=== PATIENT | male | born 1945 | race Caucasian/White ===

== ENCOUNTER → 2016-08-05 | Outpatient (CLI) | payer MEDICARE, BC ==
[2016-08-05 10:50] LABS: ALANINE AMINOTRANSFERASE 37 U/L (21-72); ALBUMIN 4.1 g/dL (3.5-5.0); ALKALINE PHOSPHATASE 62 U/L (38-126); ANION GAP 11 (5-19); ASPARTATE AMINO TRANSFERASE 32 U/L (17-59); BILIRUBIN,DIRECT 0.3 mg/dL (0.0-0.4); BILIRUBIN,TOTAL 0.5 mg/dL (0.2-1.3); BLOOD UREA NITROGEN 10 mg/dL (7-20); CALCIUM 9.1 mg/dL (8.4-10.2); CARBON DIOXIDE 23 mmol/L (22-30); CHLORIDE 106 mmol/L (98-107); CREATININE RESULT 1.06 mg/dL (0.52-1.25); GLUCOSE 167 mg/dL (75-110); POTASSIUM 4.8 mmol/L (3.6-5.0); SODIUM 140.2 mmol/L (137-145); TOTAL PROTEIN 6.7 g/dL (6.3-8.2)
== END ==
LOC: OD 08:57
PROVIDERS: ATTEND Internal Medicine Geriatric Medicine
DX: I10 Essential (primary) hypertension (principal)
CPT/HCPCS: 36415; 80053

== ENCOUNTER 2016-08-31 09:56 | Emergency (ER) | payer MEDICARE, BC ==
[2016-08-31] MEDS ORDERED: ASPIRIN 81 MG TABLET, CHEWABLE PO ONE (10:23)
[2016-08-31 10:47] LABS: ABSOLUTE BASOPHILS # (AUTO) 0.1 10^3/uL (0.0-0.2); ABSOLUTE EOSINOPHILS # (AUTO) 0.1 10^3/uL (0.0-0.6); ABSOLUTE LYMPHOCYTES (AUTO) 1.6 10^3/uL (0.5-4.7); ABSOLUTE NEUT (AUTO) 6.7 10^3/uL (1.7-8.2); EOSINOPHILS % (AUTO) 1.4 % (0-6); HEMATOCRIT 42.2 % (37.9-51.0); HEMOGLOBIN 13.8 g/dL (13.5-17.0); HGB HCT DIFFERENCE -0.8; LYMPHOCYTES % (AUTO) 16.4 % (13-45); MEAN CORPUSCULAR HEMOGLOBIN 28.6 pg (27.0-33.4); MEAN CORPUSCULAR HGB CONC 32.7 g/dL (32.0-36.0); MEAN CORPUSCULAR VOLUME 88 fl (80-97); MONOCYTES % (AUTO) 10.8 % (3-13); RED BLOOD COUNT 4.81 10^6/uL (4.35-5.55); RED CELL DISTRIBUTION WIDTH 18.1 % (11.5-14.0); SEGMENTED NEUTROPHILS % (AUTO) 70.4 % (42-78); WHITE BLOOD COUNT 9.5 10^3/uL (4.0-10.5)
--- NOTE | 2016-08-31 10:58 | ER Document Report ---
ED Cardiac - General Chief Complaint: Chest Pain Stated Complaint: CHEST PAIN Time Seen by Provider: 08/31/16 10:50 Notes: Patient says that he was laying in bed this morning around 7 AM when he experienced a "tightness" in the front of his chest. He has had it before, but "not this bad". Pain is located across the lower front of the abdomen on both sides. He also had some difficulty breathing this morning, as well. Patient says that he eventually took a nitroglycerin at about 9:20 AM as well as his other morning meds. He has acid reflux and is on omeprazole, but he says that is not helping his acid reflux and he thinks that might be part of the reason for his symptoms this morning. By the time he got to the emergency department, about 9:58 AM he was triaged, his symptoms had subsided. He is no longer having any symptoms at all at this time. Patient has a history of COPD, stopped smoking in 2010. Patient has been evaluated by hydraulic corrugating machine operator in [place]. He had a nuclear stress test done in June and following that he had a cardiac cath done July 09 of this year, just 6 weeks ago. He was told by the hydraulic corrugating machine operator that he had no more than a 25% blockage of any of his coronary arteries. PMH: Hypertension, NIDDM, acid reflux, multiple myeloma with stem cell transfusion in 2011 at [place]. TRAVEL OUTSIDE OF THE [place] IN LAST 30 DAYS: No - Related Data Allergies/Adverse Reactions: No Known Allergies Allergy (Verified 08/31/16 10:09) Home Medications: Current Home Medications Amlodipine Besylate [Norvasc 2.5 mg Tablet] 2.5 mg PO DAILY 08/31/16 [History] Aspirin [Aspirin 81 mg Chewable Tablet] 81 mg PO DAILY 08/31/16 [History] Budesonide/Formoterol Fumarate [Symbicort HFA 160-4.5 mcg Inhaler 6 gm] 2 puff IN DAILY 08/31/16 [History] Fluticasone Propionate [Flovent Diskus] 1 inh NASL DAILY 08/31/16 [History] Lansoprazole 30 mg PO DAILY 08/31/16 [History] Losartan Potassium 50 mg PO DAILY 08/31/16 [History] Metoprolol Succinate 25 mg PO DAILY 08/31/16 [History] Multivit-Min/FA/Lycopen/Lutein [Men 50 Plus Multivitamin Tab] 1 tab PO DAILY [History] Omeprazole 40 mg PO DAILY 08/31/16 [History] Past Medical History - Social History Smoking Status: Former Smoker Cigarette use (# per day): No Frequency of alcohol use: None Drug Abuse: None Family History: Reviewed & Not Pertinent Patient has suicidal ideation: No Patient has homicidal ideation: No - Past Medical History Cardiac Medical History: Reports: Hx Hypercholesterolemia, Hx Hypertension Pulmonary Medical History: Reports: Hx COPD, Hx Pneumonia - hx of 06/30/2014 Denies: Hx Asthma, Hx Bronchitis Neurological Medical History: Denies: Hx Cerebrovascular Accident, Hx Seizures Endocrine Medical History: Reports: Hx Diabetes Mellitus Type 2 GI Medical History: Reports: Hx Gastroesophageal Reflux Disease Musculoskeltal Medical History: Denies Hx Arthritis - Immunizations Hx Diphtheria, Pertussis, Tetanus Vaccination: No Hx Pneumococcal Vaccination: 01/06/14 Review of Systems - Review of Systems Notes: REVIEW OF SYSTEMS: CONSTITUTIONAL : Denies fever. EENT: Denies eye, ear, nose or mouth or throat pain or other symptoms. CARDIOVASCULAR: See HPI. RESPIRATORY: Denies cough, chest congestion, but did experience some difficulty breathing this morning. GASTROINTESTINAL: Denies abdominal pain or nausea, vomiting, or diarrhea. GENITOURINARY: Denies difficulty or painful urinating, urinary frequency, blood in urine. MUSCULOSKELETAL: Denies back or neck pain. Denies joint pain or swelling. SKIN: Denies rash or skin lesions. Extremities: Patient denies any pain or swelling of either leg. Has never had trouble with blood clots. NEUROLOGICAL: Denies LOC or altered mental status. Denies headache. Denies sensory loss or motor deficits. ALL OTHER SYSTEMS REVIEWED AND NEGATIVE. Physical Exam - Vital signs Vitals: Temp Pulse Resp BP Pulse Ox 99.9 F 67 20 109/63 98 08/31/16 10:10 08/31/16 10:10 08/31/16 10:10 08/31/16 10:10 08/31/16 10:10 Interpretation: Normal - Notes Notes: PHYSICAL EXAMINATION: GENERAL: Well-appearing, in no acute distress. Signs are all normal. HEAD: Atraumatic, normocephalic. EYES: Pupils equal round and reactive to light, extraocular movements intact. ENT: oropharynx clear without exudates. Moist mucous membranes. NECK: Normal range of motion, supple. LUNGS: Breath sounds clear and equal bilaterally. HEART: Regular rate and rhythm without murmurs. ABDOMEN: Soft, nontender. No guarding or rebound. BACK: No tenderness throughout entire back. EXTREMITIES: Normal range of motion without pain. Negative Homans bilaterally. NEUROLOGICAL: Normal speech, normal gait. Normal sensory, motor, and reflex exams. Awake, alert, and oriented x3. Cranial nerves normal. PSYCH: Normal mood, normal affect. SKIN: Warm, dry, no rashes. Course - Re-evaluation Re-evalutation: 08/31/16 13:18 Patient's entire workup was normal. Chest x-ray was negative. All labs were essentially normal. Patient has been asymptomatic since his arrival here. Given this outcome and his having had an essentially normal cardiac cath just a few weeks ago, I do not think that the patient's discomfort has anything to do with his heart. It is probably all related to his acid reflux. I have advised him to follow-up with his primary care physician, Dr. Renae about his acid reflux. - Vital Signs Vital signs: Temp Pulse Resp BP Pulse Ox 99.9 F 67 20 119/65 98 08/31/16 10:10 08/31/16 10:10 08/31/16 11:01 08/31/16 11:00 08/31/16 11:01 - Laboratory Result Diagrams: 08/31/16 10:30 08/31/16 10:30 Laboratory results interpreted by me: 08/31/16 08/31/16 10:30 10:30 RDW 18.1 H Plt Count 143 L Creatinine 1.36 H Est GFR (Non-Af Amer) 52 L Glucose 231 H - Diagnostic Test Radiology results interpreted by me: 08/31/16 10:59 chest X-ray is normal. - EKG Interpretation by Nd EKG shows normal: Sinus rhythm Rate: Normal Rhythm: NSR Additional EKG results interpreted by ga: 08/31/16 10:59 EKG is normal. Discharge - Discharge Clinical Impression: Chest pain, non-cardiac, Acid reflux Condition: Stable Disposition: HOME, SELF-CARE Additional Instructions: CHEST PAIN OF UNCLEAR CAUSE: The exact cause of your chest pain isn't clear. Fortunately, there is no evidence of a dangerous medical condition. Further testing may be required to find the source of the pain. Most often, we find that this pain is coming from the chest wall -- the muscles or rib joints in the chest. But chest pain can come from the lung and lung lining, the esophagus, the heart valves or heart lining, and even the stomach or gallbladder. Rest. Eat lightly until the pain is gone. We may prescribe medicine for pain and inflammation. You should call the physician immediately if the pain radiates to the shoulder, jaw or arms; if you start to run a fever or develop a cough; or if you develop shortness of breath, or other new or alarming symptoms. NORMAL EXAM AND WORKUP: At this time, your examination and workup show no significant abnormality. No significant abnormal physical findings were noted. All laboratory, EKG, and imaging (x-ray, CT scans, ultrasound) studies that were ordered show no significant abnormality. Although your examination and all studies that were ordered showed no significant abnormal finding, there are no examinations and no studies that are 100% accurate. There is always the possibility that some abnormality could exist and not be detected with physical examination or within the limits and capabilities of laboratory and other studies. You should return or follow up as you were instructed on your visit today for further evaluation if your symptoms do not resolve. You had an essentially normal cardiac cath just a few weeks ago. It is extremely unlikely that her chest pain is cardiac in origin. ACID REFLUX DISEASE (GERD): Gastro-Esophageal Reflux Disease (GERD) is caused by stomach acid refluxing back up into the esophagus. The valve at the end of the esophagus may be weak. This is common in persons with a hiatal hernia. GERD symptoms can include indigestion, chest pain, heartburn, or food "sticking." Certain foods, alcohol, and aspirin can make GERD worse. Treatment depends on the severity. Usually, antacids or acid-suppressing medicines are used. When the esophagus is acutely inflamed, the physician will often prescribe membrane-protective drugs such as Carafate. Some patients benefit from medication such as Reglan that tightens the valve at the top of the stomach. Avoid those foods that bring on your symptoms. For many people, these foods are coffee, chocolate, onions, garlic, and carbonated drinks. Don't use alcohol, aspirin, caffeine, or tobacco. Don't eat late at night -- within 4 hours of bedtime. Don't over-eat. If necessary, elevate the head of your bed about 4 inches so that stomach acid will not roll up into your esophagus. Call the doctor if you develop severe chest pain, inability to swallow fluids, fever, or worsening symptoms. ASPIRIN: Aspirin has been shown to have a beneficial effect on blood circulation by reducing the clotting effect of platelets in the blood. These beneficial effects can be achieved by taking just a single baby (81 mg) aspirin a day. It is recommended that any person over the age of forty take a single baby aspirin every day for heart and brain circulation, unless you are allergic to aspirin or have some significant bleeding disorder. It is strongly recommended that people who have proven cardiac or blood circulation disturbances should take a baby aspirin every day. ANTACID THERAPY: You have been instructed to start antacid therapy. Antacids directly neutralize stomach acid. This is useful for acid irritation of the esophagus, gastritis, and ulcers. You should take two tablespoons of antacid one hour after each meal and three hours after each meal. If you are not eating, take the antacid every two hours. If you are using a concentrate (such as Maalox TC), use only one tablespoon. Many antacids affect the bowels. The most common problem is diarrhea. In this case, a pure aluminum hydroxide antacid (such as AlternaGel) can be substituted for some or all doses. If the problem is constipation, add a teaspoon of Milk of Magnesia to each dose. Call the doctor if you experience continued diarrhea or constipation, or if you develop lightheadedness, bloody stool or vomitus, severe abdominal pain, or black stool. PRILOSEC (ACID PUMP INHIBITOR): Prilosec (omeprazole) is an acid-pump inhibitor. It blocks the secretion of hydrogen ions in the acid-producing cells of the stomach. Prilosec keeps your stomach from making acid. Take all medication as prescribed, even after the pain is gone. Regular antacids may be added as needed if you have symptoms while taking this medicine. There are usually no side effects from this medication. Contact your doctor if there is fever, rash, yellow skin color, increasing abdominal pain, weakness, or unusual bruising. Return at once if you develop lightheadedness, black or bloody stool, or bloody vomitus. FOLLOW-UP CARE: If you have been referred to a physician for follow-up care, call the physician s office for an appointment as you were instructed or within the next two days. If you experience worsening or a significant change in your symptoms, notify the physician immediately or return to the Emergency Department at any time for re-evaluation. Referrals: SHONA RENAE MD [Primary Care Provider] - Follow up in 1 week
--- NOTE | 2016-08-31 11:01 | RADIOLOGY REPORT (SQ) ---
EXAM DESCRIPTION: CHEST SINGLE VIEW COMPLETED DATE/TIME: 08/31/2016 10:42 am REASON FOR STUDY: SOB/CHEST PAIN COMPARISON: 02/09/2015 EXAM PARAMETERS: NUMBER OF VIEWS: One view. TECHNIQUE: Single frontal radiographic view of the chest acquired. RADIATION DOSE: NA LIMITATIONS: None. FINDINGS: LUNGS AND PLEURA: No opacities, masses or pneumothorax. No pleural effusion. MEDIASTINUM AND HILAR STRUCTURES: No masses. Contour normal. HEART AND VASCULAR STRUCTURES: Heart normal in size. Normal vasculature. BONES: No acute findings. HARDWARE: None in the chest. OTHER: No other significant finding. IMPRESSION: NO ACUTE RADIOGRAPHIC FINDING IN THE CHEST. TECHNICAL DOCUMENTATION: JOB ID: [id number]
[2016-08-31 11:06] LABS: ANION GAP 14 (5-19)
[2016-08-31 11:19] LABS: CREATINE KINASE MB 1.47 ng/mL (<4.55)
[2016-08-31 11:21] LABS: TROPONIN I < 0.012 ng/mL
[2016-08-31 11:40] LABS: ALANINE AMINOTRANSFERASE 55 U/L (21-72); ALBUMIN 4.4 g/dL (3.5-5.0); ALKALINE PHOSPHATASE 72 U/L (38-126); ASPARTATE AMINO TRANSFERASE 50 U/L (17-59); BILIRUBIN,DIRECT 0.4 mg/dL (0.0-0.4); BILIRUBIN,TOTAL 0.7 mg/dL (0.2-1.3); BLOOD UREA NITROGEN 13 mg/dL (7-20); CARBON DIOXIDE 23 mmol/L (22-30); CHLORIDE 104 mmol/L (98-107); CREATINE KINASE 132 U/L (55-170); CREATININE RESULT 1.36 mg/dL (0.52-1.25); GLUCOSE 231 mg/dL (75-110); POTASSIUM 4.4 mmol/L (3.6-5.0); SODIUM 140.7 mmol/L (137-145); TOTAL PROTEIN 7.3 g/dL (6.3-8.2)
[2016-08-31 13:19] VITALS: BP 119/59
--- NOTE | 2016-08-31 18:55 | EKG REPORT ---
SEVERITY:- NORMAL ECG - SINUS RHYTHM : Confirmed by: Yohana Kathleen 31-Aug-2016 18:54:49
== END 2016-08-31 13:33 | disposition home or self-care (01) ==
LOC: ER 09:56
DX: K21.9 Gastro-esophageal reflux disease without esophagitis (principal); R07.89 Other chest pain; I10 Essential (primary) hypertension; E11.9 Type 2 diabetes mellitus without complications; J44.9 Chronic obstructive pulmonary disease, unspecified; Z87.891 Personal history of nicotine dependence; Z85.89 Personal history of malignant neoplasm of other organs and systems; Z79.899 Other long term (current) drug therapy
CPT/HCPCS: 36415; 71010; 80053; 82550; 82553; 84484; 85025; 93005; 93010; 99285

== ENCOUNTER 2019-03-27 12:07 | Emergency (ER) | payer MEDICARE, BC ==
--- NOTE | 2019-03-27 12:41 | ER Document Report ---
ED Medical Screen (RME) - General Chief Complaint: Breathing Difficulty Stated Complaint: PAINFUL COUGH/DIFFICULTY BREATHING/WEAKNESS Time Seen by Provider: 03/27/19 12:37 Primary Care Provider: SHONA RENAE MD [Primary Care Provider] - Follow up as needed Mode of Arrival: Ambulatory Information source: Patient Notes: 74-year-old male presented to ED for complaint of no energy and not able to catch his breath with cough. He does have a history of COPD as well as multiple myeloma high blood pressure and diabetes. 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 He had a left inguinal hernia repair vasectomy and circumcision. He is a former smoker but has not smoked since 2010. Patient does have clear lung sounds I have greeted and performed a rapid initial assessment of this patient. A comprehensive ED assessment and evaluation of the patient, analysis of test results and completion of medical decision making process will be conducted by an additional ED providers. TRAVEL OUTSIDE OF THE [place] IN LAST 30 DAYS: No - Related Data Allergies/Adverse Reactions: No Known Allergies Allergy (Verified 08/31/16 10:09) Past Medical History - Social History Chew tobacco use (# tins/day): No Frequency of alcohol use: None Drug Abuse: None - Past Medical History Cardiac Medical History: Reports: Hx Hypercholesterolemia, Hx Hypertension Pulmonary Medical History: Reports: Hx COPD, Hx Pneumonia - hx of 06/30/2014 Denies: Hx Asthma, Hx Bronchitis Neurological Medical History: Denies: Hx Cerebrovascular Accident, Hx Seizures Endocrine Medical History: Reports: Hx Diabetes Mellitus Type 2 Renal/ Medical History: Denies: Hx Peritoneal Dialysis GI Medical History: Reports: Hx Gastroesophageal Reflux Disease Musculoskeltal Medical History: Denies Hx Arthritis - Immunizations Hx Diphtheria, Pertussis, Tetanus Vaccination: No Physical Exam - Vital signs Vitals: Temp Pulse Resp BP Pulse Ox 98.1 F 80 18 138/99 H 96 03/27/19 12:13 03/27/19 12:13 03/27/19 12:13 03/27/19 12:13 03/27/19 12:13 Course - Vital Signs Vital signs: Temp Pulse Resp BP Pulse Ox 98.1 F 80 18 138/99 H 96 03/27/19 12:13 03/27/19 12:13 03/27/19 12:13 03/27/19 12:13 03/27/19 12:13 Doctor's Discharge - Discharge Referrals: SHONA RENAE MD [Primary Care Provider] - Follow up as needed
--- NOTE | 2019-03-27 13:33 | RADIOLOGY REPORT (SQ) ---
EXAM DESCRIPTION: CHEST 2 VIEWS COMPLETED DATE/TIME: 03/27/2019 1:12 pm REASON FOR STUDY: Cough short of breath history of COPD and multiple COMPARISON: PA and lateral views of the chest from 02/09/2015 and AP view of the chest from 08/31/2016 EXAM PARAMETERS: NUMBER OF VIEWS: two views TECHNIQUE: PA and lateral views of the chest were obtained. RADIATION DOSE: NA LIMITATIONS: none FINDINGS: LUNGS AND PLEURA: Acute patchy parenchymal opacities in the right upper lobe. There is no pleural effusion or pneumothorax. MEDIASTINUM AND HILAR STRUCTURES: No mediastinal or hilar contour abnormality. HEART AND VASCULAR STRUCTURES: The cardiac silhouette and pulmonary vasculature are within normal houser its. BONES: No acute findings. HARDWARE: None in the chest. OTHER: No other finding. IMPRESSION: Findings as above are concerning for a right upper lobe pneumonia. TECHNICAL DOCUMENTATION: JOB ID: [id number]- All Rights Reserved Reading location - IP/workstation name: [email or web address]
[2019-03-27 14:18] LABS: APPEARANCE,URINE CLEAR; BILIRUBIN,URINE NEGATIVE (NEGATIVE); COLOR,URINE YELLOW; GLUCOSE, URINE >=500 mg/dL (NEGATIVE); KETONES,URINE NEGATIVE (NEGATIVE); PROTEIN,URINE NEGATIVE (NEGATIVE); URINE SPECIFIC GRAVITY 1.027; UROBILINOGEN,URINE NEGATIVE mg/dL (<2.0)
[2019-03-27 14:32] LABS: ABSOLUTE BASOPHILS # (AUTO) 0.1 10^3/uL (0.0-0.2); ABSOLUTE EOSINOPHILS # (AUTO) 0.1 10^3/uL (0.0-0.6); ABSOLUTE LYMPHOCYTES (AUTO) 1.6 10^3/uL (0.5-4.7); ABSOLUTE NEUT (AUTO) 5.4 10^3/uL (1.7-8.2); BASOPHILS % (AUTO) 0.6 % (0-2); EOSINOPHILS % (AUTO) 1.7 % (0-6); HEMATOCRIT 39.8 % (37.9-51.0); HEMOGLOBIN 13.3 g/dL (13.5-17.0); LYMPHOCYTES % (AUTO) 19.9 % (13-45); MEAN CORPUSCULAR HEMOGLOBIN 28.1 pg (27.0-33.4); MEAN CORPUSCULAR HGB CONC 33.4 g/dL (32.0-36.0); MEAN CORPUSCULAR VOLUME 84 fl (80-97); MONOCYTES % (AUTO) 12.2 % (3-13); PLATELET COUNT 182 10^3/uL (150-450); RED BLOOD COUNT 4.75 10^6/uL (4.35-5.55); RED CELL DISTRIBUTION WIDTH 17.6 % (11.5-14.0); SEGMENTED NEUTROPHILS % (AUTO) 65.6 % (42-78); TOTAL CELLS COUNTED % (AUTO) 100 %; WHITE BLOOD COUNT 8.2 10^3/uL (4.0-10.5)
[2019-03-27 14:46] LABS: ALBUMIN 3.8 g/dL (3.5-5.0); ALKALINE PHOSPHATASE 89 U/L (38-126); ANION GAP 13 (5-19); ASPARTATE AMINO TRANSFERASE 19 U/L (17-59); BILIRUBIN,DIRECT 0.4 mg/dL (0.0-0.4); BILIRUBIN,TOTAL 0.5 mg/dL (0.2-1.3); BLOOD UREA NITROGEN 18 mg/dL (7-20); CALCIUM 8.8 mg/dL (8.4-10.2); CARBON DIOXIDE 21 mmol/L (22-30); CHLORIDE 105 mmol/L (98-107); GLUCOSE 199 mg/dL (75-110); POTASSIUM 3.4 mmol/L (3.6-5.0); TOTAL PROTEIN 6.8 g/dL (6.3-8.2)
--- NOTE | 2019-03-27 15:49 | ER Document Report ---
ED Respiratory Problem - General Chief Complaint: Chest Pain Stated Complaint: PAINFUL COUGH/DIFFICULTY BREATHING/WEAKNESS Time Seen by Provider: 03/27/19 12:37 Primary Care Provider: SHONA RENAE MD [Primary Care Provider] - Follow up in 3-5 days Mode of Arrival: Ambulatory Notes: Patient is a 74-year-old male who presents to the emergency department with a chief complaint of shortness of breath. His shortness of breath started about a week ago. Patient states that his shortness of breath feels in his right upper lobe. Patient states that he is staying well-hydrated. Denies any fever, body aches, chills, or any other symptoms. TRAVEL OUTSIDE OF THE [place] IN LAST 30 DAYS: No - Related Data Allergies/Adverse Reactions: No Known Allergies Allergy (Verified 08/31/16 10:09) Past Medical History - General Information source: Patient - Social History Smoking Status: Former Smoker Chew tobacco use (# tins/day): No Frequency of alcohol use: None Drug Abuse: None Family History: Reviewed & Not Pertinent Patient has suicidal ideation: No Patient has homicidal ideation: No - Past Medical History Cardiac Medical History: Reports: Hx Hypercholesterolemia, Hx Hypertension Pulmonary Medical History: Reports: Hx COPD, Hx Pneumonia - hx of 06/30/2014 Denies: Hx Asthma, Hx Bronchitis Neurological Medical History: Denies: Hx Cerebrovascular Accident, Hx Seizures Endocrine Medical History: Reports: Hx Diabetes Mellitus Type 2 Renal/ Medical History: Denies: Hx Peritoneal Dialysis GI Medical History: Reports: Hx Gastroesophageal Reflux Disease Musculoskeletal Medical History: Denies Hx Arthritis - Immunizations Hx Diphtheria, Pertussis, Tetanus Vaccination: No Hx Pneumococcal Vaccination: 01/06/14 Review of Systems - Review of Systems Notes: REVIEW OF SYSTEMS: CONSTITUTIONAL : Denies recent illness. Denies recent unintentional weight loss. Denies fever, chills, or sweats. EENT: Denies eye, ear, throat, or mouth pain, discharge, or symptoms. Denies nasal or sinus congestion. CARDIOVASCULAR: Denies chest pain. RESPIRATORY: See HPI. GASTROINTESTINAL: Denies nausea, vomiting, and diarrhea. Denies abdominal pain. Denies constipation. GENITOURINARY: Denies difficulty urinating, burning, blood in urine, urgency or frequency. MUSCULOSKELETAL: Denies neck and back pain. Denies joint pain or swelling. SKIN: Denies rash, itchiness, or lesions HEMATOLOGIC : Denies easy bruising or bleeding. LYMPHATIC: Denies swollen, painful, enlarged glands. NEUROLOGICAL: Denies no numbness or tingling denies weakness. Denies headache. Denies altered mental status. Denies alteration in speech. PSYCHIATRIC: Denies stress, anxiety, alteration in sleep patterns, or depression. All other systems reviewed and negative. Physical Exam - Vital signs Vitals: Temp Pulse Resp BP Pulse Ox 98.1 F 80 18 138/99 H 96 03/27/19 12:13 03/27/19 12:13 03/27/19 12:13 03/27/19 12:13 03/27/19 12:13 - Notes Notes: PHYSICAL EXAMINATION: GENERAL: Appears well, healthy, well-nourished, no acute distress. HEAD: Normocephalic, atraumatic. EYES: PERRL, conjunctiva normal, all extraocular movements intact, sclera nonicteric ENT: Moist mucous membranes. NECK: Supple, no noticeable swelling, redness, rash. Normal range of motion. LUNGS: Coarse/Rhonchi breath sounds to right upper lobe. CARDIOVASCULAR: S1-S2, regular rate, regular rhythm. Radial pulses 2+, normal. ABDOMEN: Normoactive bowel sounds. Soft, nontender, no guarding, no rebound tenderness, and no masses palpated. EXTREMITIES: Normal strength and range of motion, no pitting or edema. No cyanosis. NEUROLOGICAL: Moves all extremities upon command. Strength 5/5 in all extremities. PSYCH: Normal mood, normal affect. SKIN: Warm, dry. No rash, lesions, ulcerations noted. Normal skin turgor. Course - Re-evaluation Re-evalutation: X-ray shows right upper lobe pneumonia. Hemoglobin is only slightly low at 10.3. Chemistry shows a potassium of 3.4. His CO2 is 21. Creatinine is slightly elevated. Patient does not meet admission criteria, per the CURB-65 assessment. Patient received Levaquin here in the emergency department. Advised him to follow-up with his primary care provider. Follow-up precautions were given. Verbal discharge instructions were given to the patient. They verbalized understanding. They are stable for discharge. - Vital Signs Vital signs: Temp Pulse Resp BP Pulse Ox 98.1 F 80 22 H 129/71 H 100 03/27/19 12:13 03/27/19 12:13 03/27/19 16:02 03/27/19 16:02 03/27/19 16:02 - Laboratory Result Diagrams: 03/27/19 13:56 03/27/19 13:56 Laboratory results interpreted by me: 03/27/19 03/27/19 03/27/19 13:56 13:56 13:56 Hgb 13.3 L RDW 17.6 H Potassium 3.4 L Carbon Dioxide 21 L Creatinine 1.34 H Est GFR (MDRD) Non-Af 52 L Glucose 199 H Urine Glucose (UA) >=500 H Discharge - Discharge Clinical Impression: Pneumonia Qualifiers: Pneumonia type: due to unspecified organism Laterality: right Lung location: upper lobe of lung Qualified Code(s): J18.9 - Pneumonia, unspecified organism Condition: Stable Disposition: HOME, SELF-CARE Additional Instructions: You have been diagnosed with a pneumonia. It is very important that you take all of your antibiotics until they are gone even if you are feeling better. Please return to the emergency department immediately if you began having worsening shortness of breath, become confused, have worsening pain, pass out, have persistent vomiting that prevents you from being able to drink fluids for more than 12 hours, or have any other symptoms that are worrisome to you. Please follow-up with your primary care doctor in the next 1-2 days. Prescriptions: Levofloxacin [Levaquin 750 mg Tablet] 750 mg PO DAILY #5 tablet Referrals: SHONA RENAE MD [Primary Care Provider] - Follow up in 3-5 days
[2019-03-27] MEDS ORDERED: LEVOFLOXACIN 750 MG TABLET PO ONE (15:51)
[2019-03-27 16:52] VITALS: BP 129/71
== END 2019-03-27 16:52 | disposition home or self-care (01) ==
LOC: ER 12:07
DX: J18.9 Pneumonia, unspecified organism (principal); R07.9 Chest pain, unspecified; R53.1 Weakness; R06.02 Shortness of breath; E78.00 Pure hypercholesterolemia, unspecified; I10 Essential (primary) hypertension; E11.9 Type 2 diabetes mellitus without complications
CPT/HCPCS: 99285; 36415; 85025; 80053; 81001; 71046; A9270

== ENCOUNTER 2019-06-12 11:43 | Inpatient (IN) | payer MEDICARE, BC ==
[2019-06-12 12:28] LABS: ABSOLUTE LYMPHOCYTES (AUTO) 0.9 10^3/uL (0.5-4.7); ABSOLUTE NEUT (AUTO) 12.5 10^3/uL (1.7-8.2); BASOPHILS % (AUTO) 0.1 % (0-2); EOSINOPHILS % (AUTO) 0.1 % (0-6); HEMATOCRIT 40.8 % (37.9-51.0); HEMOGLOBIN 13.8 g/dL (13.5-17.0); LYMPHOCYTES % (AUTO) 6.1 % (13-45); MEAN CORPUSCULAR HEMOGLOBIN 29.1 pg (27.0-33.4); MEAN CORPUSCULAR HGB CONC 33.7 g/dL (32.0-36.0); MEAN CORPUSCULAR VOLUME 86 fl (80-97); MONOCYTES % (AUTO) 7.3 % (3-13); PLATELET COUNT 234 10^3/uL (150-450); RED BLOOD COUNT 4.74 10^6/uL (4.35-5.55); RED CELL DISTRIBUTION WIDTH 18.6 % (11.5-14.0); SEGMENTED NEUTROPHILS % (AUTO) 86.4 % (42-78); TOTAL CELLS COUNTED % (AUTO) 100 %; WHITE BLOOD COUNT 14.4 10^3/uL (4.0-10.5)
[2019-06-12 12:43] LABS: ALBUMIN 3.4 g/dL (3.5-5.0); ALKALINE PHOSPHATASE 94 U/L (38-126); ANION GAP 17 (5-19); ASPARTATE AMINO TRANSFERASE 31 U/L (17-59); BILIRUBIN,DIRECT 0.4 mg/dL (0.0-0.4); BLOOD UREA NITROGEN 35 mg/dL (7-20); CALCIUM 8.2 mg/dL (8.4-10.2); CARBON DIOXIDE 15 mmol/L (22-30); CHLORIDE 99 mmol/L (98-107); GLUCOSE 312 mg/dL (75-110); POTASSIUM 5.1 mmol/L (3.6-5.0); TOTAL PROTEIN 6.4 g/dL (6.3-8.2)
[2019-06-12] MEDS ORDERED: NORMAL SALINE 1000 ML 1,000 ML IV ONE (13:08)
[2019-06-12] MEDS ORDERED: CEFTRIAXONE 1 GM/D5W RTU 1 GM/50 ML RTUPB IV ONE (13:09)
[2019-06-12] MEDS ORDERED: AZITHROMYCIN INJ 500 MG VIAL IV ONE (13:12)
--- NOTE | 2019-06-12 13:13 | ER Document Report ---
ED General - General Stated Complaint: LEFT ARM PAIN Time Seen by Provider: 06/12/19 13:01 Primary Care Provider: SHONA RENAE MD [Primary Care Provider] - Follow up as needed Mode of Arrival: Ambulatory Information source: Patient Notes: 74-year-old male with chief complaint of having yellow sputum for 5 days as well as left flank and left lateral chest pain with poor appetite and malaise and tachycardia and hypoxia. Patient able to speak full sentences without difficulty. Patient appears very comfortable in bed. He told nursing staff that he had never had A. fib before but told me that he does have a history of rapid heart rate and takes metoprolol and Norvasc. He also advised nursing staff he lives with his and he told me that he lives with his 48-year-old son. He reports he had a pneumonia which required antibiotics last year but did not need to be hospitalized for this. TRAVEL OUTSIDE OF THE [place] IN LAST 30 DAYS: No - HPI Onset: Other - x 5 days Onset/Duration: Persistent Quality of pain: Achy - Left flank - Related Data Allergies/Adverse Reactions: No Known Allergies Allergy (Verified 08/31/16 10:09) Past Medical History - General Information source: Patient - Social History Smoking Status: Never Smoker Cigarette use (# per day): No Chew tobacco use (# tins/day): No Smoking Education Provided: No Frequency of alcohol use: None Drug Abuse: None Lives with: Family - lives with and 40 year old son Family History: Reviewed & Not Pertinent Patient has suicidal ideation: No Patient has homicidal ideation: No - Past Medical History Cardiac Medical History: Reports: Hx Hypercholesterolemia, Hx Hypertension Pulmonary Medical History: Reports: Hx COPD, Hx Pneumonia - hx of 06/30/2014 Denies: Hx Asthma, Hx Bronchitis Neurological Medical History: Denies: Hx Cerebrovascular Accident, Hx Seizures Endocrine Medical History: Reports: Hx Diabetes Mellitus Type 2 Renal/ Medical History: Denies: Hx Peritoneal Dialysis GI Medical History: Reports: Hx Gastroesophageal Reflux Disease Musculoskeletal Medical History: Denies Hx Arthritis - Immunizations Hx Diphtheria, Pertussis, Tetanus Vaccination: No Hx Pneumococcal Vaccination: 01/06/14 Review of Systems - Review of Systems Constitutional: See HPI, Malaise, Weakness, Recent illness EENT: No symptoms reported Cardiovascular: See HPI, Chest pain Respiratory: See HPI, Cough, Sputum - yellow coloured Gastrointestinal: No symptoms reported Genitourinary: No symptoms reported Male Genitourinary: No symptoms reported Musculoskeletal: No symptoms reported Skin: No symptoms reported Hematologic/Lymphatic: No symptoms reported Neurological/Psychological: No symptoms reported Physical Exam - Vital signs Vitals: Temp Resp BP Pulse Ox 98.0 F 24 H 96/72 L 92 06/12/19 12:03 06/12/19 12:03 06/12/19 12:03 06/12/19 12:03 Interpretation: Hypotensive, Tachycardic, Tachypneic - General General appearance: Alert - HEENT Head: Normocephalic Eyes: Normal Conjunctiva: Normal Eyelashes: Normal Pupils: PERRL Mouth/Lips: Normal Mucous membranes: Normal Pharynx: Normal Neck: Normal - Respiratory Respiratory status: No respiratory distress Chest status: Tender Breath sounds: Productive cough, Wheezing Chest palpation: Tender - Cardiovascular Rhythm: Irregularly irregular, Tachycardia Heart sounds: Normal auscultation Murmur: No Friction rub: No Reshma's crunch: No - Abdominal Inspection: Normal Distension: No distension Bowel sounds: Normal - Back Back: Normal - Extremities General upper extremity: Normal inspection General lower extremity: Normal inspection - Neurological Neuro grossly intact: Yes Cognition: Normal Orientation: AAOx4 Center Coma Scale Eye Opening: Spontaneous Jesu Coma Scale Verbal: Oriented Center Coma Scale Motor: Obeys Commands Jesu Coma Scale Total: 15 Speech: Normal Cranial nerves: Normal Cerebellar coordination: Normal Motor strength normal: LUE, RUE, LLE, RLE Course - Vital Signs Vital signs: Temp Pulse Resp BP Pulse Ox 98.0 F 24 H 96/72 L 91 L 06/12/19 12:03 06/12/19 12:03 06/12/19 12:03 06/12/19 12:11 - Laboratory Result Diagrams: 06/12/19 11:55 06/12/19 11:55 Laboratory results interpreted by me: 06/12/19 06/12/19 06/12/19 11:55 11:55 12:41 WBC 14.4 H RDW 18.6 H Lymph % (Auto) 6.1 L Absolute Neuts (auto) 12.5 H Seg Neutrophils % 86.4 H Sodium 130.5 L Potassium 5.1 H Carbon Dioxide 15 L BUN 35 H Creatinine 1.83 H Est GFR ( Amer) 44 L Est GFR (MDRD) Non-Af 36 L Glucose 312 H Lactic Acid 2.2 H Calcium 8.2 L Albumin 3.4 L - Diagnostic Test Radiology reviewed: Reports reviewed Critical Care Note - Critical Care Note Total time excluding time spent on procedures (mins): 60 Comments: I spoke with Dr. Renae at 1340 and he advises ICU Discharge - Discharge Clinical Impression: Bacterial lobar pneumonia, Tachycardia Hypotension Qualifiers: Hypotension type: other hypotension type Qualified Code(s): I95.89 - Other hypotension Sepsis Qualifiers: Sepsis type: sepsis due to unspecified organism Sepsis acute organ dysfunction status: unspecified Qualified Code(s): A41.9 - Sepsis, unspecified organism Condition: Good Disposition: ADMITTED INPATIENT Unit Admitted: IMCU - IMCU Referrals: SHONA RENAE MD [Primary Care Provider] - Follow up as needed
--- NOTE | 2019-06-12 13:15 | RADIOLOGY REPORT (SQ) ---
EXAM DESCRIPTION: CHEST SINGLE VIEW IMAGES COMPLETED DATE/TIME: 06/12/2019 12:44 pm REASON FOR STUDY: short of breath COMPARISON: 03/27/2019 EXAM PARAMETERS: NUMBER OF VIEWS: One view. TECHNIQUE: Single frontal radiographic view of the chest acquired. RADIATION DOSE: NA LIMITATIONS: None. FINDINGS: LUNGS AND PLEURA: Consolidation in the left base consistent with pneumonia. Right upper l obe infiltrate has resolved. No pneumothorax. MEDIASTINUM AND HILAR STRUCTURES: No masses. Contour normal. HEART AND VASCULAR STRUCTURES: Heart normal in size. Normal vasculature. BONES: No acute findings. HARDWARE: None in the chest. OTHER: No other significant finding. IMPRESSION: Left lower lobe infiltrate consistent with pneumonia. TECHNICAL DOCUMENTATION: JOB ID: [id number] 2010 [employer]- All Rights Reserved Reading location - IP/workstation name: [email or web address]
--- NOTE | 2019-06-12 14:10 | EKG REPORT ---
SEVERITY:- ABNORMAL ECG - ATRIAL FIBRILLATION LVH BY VOLTAGE NONSPECIFIC T ABNORMALITIES, INFERIOR LEADS : Confirmed by: Angela Cristina MD 12-Jun-2019 14:10:06
[2019-06-12] MEDS ORDERED: DEXTROSE 40% GEL 15 GM TUBE PO PRN ×2 (15:39)
[2019-06-12] MEDS ORDERED: DEXTROSE 50%-WATER 25 GM/50 ML DISP.SYRIN IV PRN ×2 (15:39)
[2019-06-12] MEDS ORDERED: GLUCAGON,HUMAN RECOMB 1 MG INJ IM PRN (15:39)
[2019-06-12] MEDS ORDERED: IPRATROPIUM/ALBUTEROL 0.5-2.5 MG/3 ML AMPUL NEB PRN (15:47)
[2019-06-12 15:51] LABS: APPEARANCE,URINE CLEAR; BILIRUBIN,URINE NEGATIVE (NEGATIVE); COLOR,URINE YELLOW; GLUCOSE, URINE >=500 mg/dL (NEGATIVE); KETONES,URINE 20 mg/dL (NEGATIVE); LEUKOCYTE ESTERASE,URINE NEGATIVE (NEGATIVE); NITRITE,URINE NEGATIVE (NEGATIVE); PROTEIN,URINE 30 mg/dL (NEGATIVE); URINE SPECIFIC GRAVITY 1.027; UROBILINOGEN,URINE NEGATIVE mg/dL (<2.0)
--- NOTE | 2019-06-12 16:24 | PDOC H&P ---
History of Present Illness Admission Date/PCP: 06/12/19 15:02 SHONA OC Patient complains of: Pain with cough History of Present Illness: JESSICA WALKER is a 74 year old male patient known to my practice who presented to the office with complain of left sided flank pain with intermittent coughing and no improvement in his symptoms including productive cough despite 5 days of Azithromycin 250 mg six tablets treatment for possible upper respiratory tract infection. Patient has history of COPD and Multiple Myeloma. Patient reported worsening symptoms since 06/09/2019. He reported worsening shortness of breath with walking, and exertion. He localized pain to left flank region with associated decrease in appetite. He denied associated fever, chills, chest pain, palpitation, wheezing, nausea, vomiting, or heartburn. No nasal or sinus congestion. No post nasal drip. He reported visual hallucination as seeing bugs since this morning. He was subsequently referred to the ED for further evaluation and management due to concern for failure of outpatient oral antibiotic therapy, worsening leukocytosis with left shift, abnormal chest X ray suggestive of Left lower lobe pneumonia, abnormal urinalysis with glycosuria, and concern about COVID-19 infection in view of his age and morbidities. His initial evaluation the ED was significant for new onset Atrial fibrillation with rapid ventricular rate. He was advised hospitalization for further evaluation and management. His morbidities are as listed below. Past Medical History Cardiac Medical History: Reports: Hyperlipidema, Hypertension Pulmonary Medical History: Reports: Chronic Obstructive Pulmonary Disease (COPD), Pneumonia - hx of 06/30/2014 Denies: Asthma, Bronchitis Neurological Medical History: Denies: Seizures Endocrine Medical History: Reports: Diabetes Mellitus Type 2 GI Medical History: Reports: Gastroesophageal Reflux Disease Musculoskeltal Medical History: Denies: Arthritis Hematology: Denies: Anemia Social History Lives with: Family - lives with and 40 year old son Smoking Status: Never Smoker Electronic Cigarette use?: No Frequency of Alcohol Use: None Hx Recreational Drug Use: No Hx Prescription Drug Abuse: No - Advance Directive Resuscitation Status: Do Not Resuscitate - Copy of advance directive dated 04/21/2019 on chart Family History Family History: Reviewed & Not Pertinent Parental Family History Reviewed: Yes Children Family History Reviewed: Yes Sibling(s) Family History Reviewed.: Yes Medication/Allergy Home Medications: Gabapentin [Gralise] 300 mg PO QHS 06/30/14 Metformin HCl [Glucophage] 1,000 mg PO BID 06/30/14 Pravastatin Sodium [Pravachol] 20 mg PO QHS 06/30/14 Amlodipine Besylate [Norvasc 2.5 mg Tablet] 2.5 mg PO DAILY 08/31/16 Aspirin [Aspirin 81 mg Chewable Tablet] 81 mg PO DAILY 08/31/16 Fluticasone Propionate [Flovent Diskus] 1 inh NASL DAILY 08/31/16 Losartan Potassium 50 mg PO DAILY 08/31/16 Metoprolol Succinate 25 mg PO DAILY 08/31/16 Omeprazole 40 mg PO DAILY 08/31/16 Allergies/Adverse Reactions: No Known Allergies Allergy (Verified 08/31/16 10:09) Review of Systems Constitutional: ABSENT: chills, fever(s), headache(s), weight gain, weight loss Eyes: PRESENT: visual disturbances - Correction of acuity with glasses Ears: PRESENT: hearing changes - hearing impaired with aide in use Nose, Mouth, and Throat: ABSENT: headache(s), mouth pain, sore throat, vertigo Cardiovascular: PRESENT: dyspnea on exertion. ABSENT: chest pain, edema, orthropnea, palpitations Respiratory: PRESENT: cough - with left flank pain, dyspnea - with exertion and walking, sputum. ABSENT: hemoptysis Gastrointestinal: ABSENT: abdominal pain, constipation, diarrhea, hematemesis, hematochezia, nausea, vomiting Genitourinary: ABSENT: dysuria, hematuria Musculoskeletal: ABSENT: joint swelling Integumentary: ABSENT: rash, wounds Neurological: ABSENT: abnormal gait, abnormal speech, confusion, dizziness, focal weakness, syncope Psychiatric: ABSENT: anxiety, depression, homidical ideation, suicidal ideation Endocrine: ABSENT: cold intolerance, heat intolerance, menstrual abnormalities, polydipsia, polyuria Hematologic/Lymphatic: ABSENT: easy bleeding, easy bruising, lymphadenopathy Allergic/Immunologic: ABSENT: seasonal rhinorrhea Physical Exam Vital Signs: Temp Pulse Resp BP Pulse Ox 98.0 F 29 H 97/61 L 94 06/12/19 12:03 06/12/19 15:02 06/12/19 15:02 06/12/19 15:02 Intake & Output 06/11/19 06/12/19 06/13/19 06:59 06:59 06:59 Intake Total 1000 Balance 1000 General appearance: PRESENT: mild distress - on supplemental oxygen at 2L/min via nasal canula, well-developed, well-nourished Head exam: PRESENT: atraumatic, normocephalic Eye exam: PRESENT: conjunctiva pink, EOMI, PERRLA. ABSENT: scleral icterus Ear exam: PRESENT: normal external ear exam Mouth exam: PRESENT: moist, tongue midline Throat exam: ABSENT: post pharyngeal erythema Neck exam: PRESENT: full ROM. ABSENT: carotid bruit, JVD, lymphadenopathy, thyromegaly Respiratory exam: PRESENT: crackles - left lower region, decreased breath sounds - at lung bases, rales Cardiovascular exam: PRESENT: irregular rhythm, +S1, +S2, tachycardia. ABSENT: diastolic murmur, rubs, systolic murmur Pulses: PRESENT: normal dorsalis pedis pul, +2 pedal pulses bilateral Vascular exam: PRESENT: normal capillary refill. ABSENT: pallor GI/Abdominal exam: PRESENT: normal bowel sounds, soft. ABSENT: distended, guarding, mass, organolmegaly, rebound, tenderness Rectal exam: PRESENT: deferred Extremities exam: ABSENT: pedal edema Musculoskeletal exam: ABSENT: ambulatory - on wheelchair in the office due to shortness of breathwith oxygen saturation at 88-89% on room air Neurological exam: PRESENT: alert, awake, oriented to person, oriented to place, oriented to time, oriented to situation, CN II-XII grossly intact. ABSENT: motor sensory deficit Psychiatric exam: PRESENT: appropriate affect, normal mood. ABSENT: homicidal ideation, suicidal ideation Skin exam: PRESENT: dry, intact, warm. ABSENT: cyanosis, rash Results Laboratory Results: 06/12/19 11:55 06/12/19 11:55 06/12/19 06/12/19 06/12/19 11:55 11:55 12:41 WBC 14.4 H RBC 4.74 Hgb 13.8 Hct 40.8 MCV 86 MCH 29.1 MCHC 33.7 RDW 18.6 H Plt Count 234 Seg Neutrophils % 86.4 H Sodium 130.5 L Potassium 5.1 H Chloride 99 Carbon Dioxide 15 L Anion Gap 17 BUN 35 H Creatinine 1.83 H Est GFR ( Amer) 44 L Glucose 312 H Lactic Acid 2.2 H Calcium 8.2 L Total Bilirubin 1.0 AST 31 Alkaline Phosphatase 94 Total Protein 6.4 Albumin 3.4 L 06/12/19 11:55 Troponin I < 0.012 Impressions: Chest X-Ray 06/12/19 12:03 IMPRESSION: Left lower lobe infiltrate consistent with pneumonia. Assessment & Plan - Diagnosis (1) Bacterial lobar pneumonia Is this a current diagnosis for this admission?: Yes Plan: See admitting physician orders for details about care plan. (2) Probable sepsis Is this a current diagnosis for this admission?: Yes Plan: See admitting physician orders for details about care plan. (3) Atrial fibrillation with rapid ventricular response Is this a current diagnosis for this admission?: Yes Plan: See admitting physician orders for details about care plan. (4) Acute delirium Is this a current diagnosis for this admission?: Yes Plan: See admitting physician orders for details about care plan. (5) Failure of outpatient treatment Is this a current diagnosis for this admission?: Yes Plan: See admitting physician orders for details about care plan. (6) COPD (chronic obstructive pulmonary disease) Qualifiers: COPD type: unspecified COPD Qualified Code(s): J44.9 - Chronic obstructive pulmonary disease, unspecified Is this a current diagnosis for this admission?: Yes Plan: See admitting physician orders for details about care plan. (7) Diabetes mellitus type 2 in nonobese Is this a current diagnosis for this admission?: Yes Plan: See admitting physician orders for details about care plan. (8) HTN (hypertension) Qualifiers: Hypertension type: essential hypertension Qualified Code(s): I10 - Essential (primary) hypertension Is this a current diagnosis for this admission?: Yes Plan: See admitting physician orders for details about care plan. (9) HLD (hyperlipidemia) Qualifiers: Hyperlipidemia type: unspecified Qualified Code(s): E78.5 - Hyperlipidemia, unspecified Is this a current diagnosis for this admission?: Yes Plan: See admitting physician orders for details about care plan. (10) CAD (coronary artery disease) Qualifiers: Coronary Disease-Associated Artery/Lesion type: unspecified vessel or lesion type Is this a current diagnosis for this admission?: Yes Plan: See admitting physician orders for details about care plan. (11) Multiple myeloma in remission Is this a current diagnosis for this admission?: Yes Plan: See admitting physician orders for details about care plan. - Time Time Spent: Greater than 70 Minutes Medications reviewed and adjusted accordingly: Yes Anticipated discharge: Home with Homehealth Within: Other - Inpatient Certification Based on my medical assessment, after consideration of the patient's comorbidities, presenting symptoms, or acuity I expect that the services needed warrant INPATIENT care.: Yes I certify that my determination is in accordance with my understanding of Medicare's requirements for reasonable and necessary INPATIENT services [42 CFR 412.3e].: Yes Medical Necessity: Significant Comorbidiites Make Outpatient Treatment Too Ri geoffrey, Need Close Monitoring Due to Risk of Patient Decompensation, Need For IV Fluids, Need For Continuous Telemetry Monitoring, Need for Nebulizer Therapy and Monitoring of Response, Need for IV Antibiotics, Risk of Complication if Not Cared For in Hospital, Risk of Diagnosis Which Will Require Inpatient Eval/Care/Monitoring 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
[2019-06-12] MEDS: INSULIN LISPRO 100 UNIT/ML 3 ML VIAL SUBCUT SCH ×2 (17:19→22:05)
[2019-06-12 17:36] LABS: A TYPE INFLUENZA AG NEGATIVE (NEGATIVE); B INFLUENZA AG NEGATIVE (NEGATIVE)
[2019-06-12] MEDS: APIXABAN 5 MG TABLET PO SCH (19:10)
[2019-06-12] MEDS: NORMAL SALINE 1000 ML 1,000 ML IV PRN (19:11)
[2019-06-13] MEDS ORDERED: DILTIAZEM HCL/D5W 125 MG/125 ML RTUINJ IV ONE (00:10)
[2019-06-13] MEDS ORDERED: DILTIAZEM HCL/D5W 125 MG/125 ML RTUINJ IV PRN (00:14)
[2019-06-13] MEDS: NORMAL SALINE 1000 ML 1,000 ML IV PRN ×2 (04:29→14:30)
[2019-06-13 05:42] LABS: ABSOLUTE EOSINOPHILS # (AUTO) 0.1 10^3/uL (0.0-0.6); ABSOLUTE LYMPHOCYTES (AUTO) 0.9 10^3/uL (0.5-4.7); ABSOLUTE MONOCYTES (AUTO) 0.9 10^3/uL (0.1-1.4); ABSOLUTE NEUT (AUTO) 8.2 10^3/uL (1.7-8.2); BASOPHILS % (AUTO) 0.4 % (0-2); EOSINOPHILS % (AUTO) 0.6 % (0-6); HEMATOCRIT 36.3 % (37.9-51.0); HEMOGLOBIN 12.5 g/dL (13.5-17.0); LYMPHOCYTES % (AUTO) 9.1 % (13-45); MEAN CORPUSCULAR HEMOGLOBIN 29.1 pg (27.0-33.4); MEAN CORPUSCULAR HGB CONC 34.3 g/dL (32.0-36.0); MEAN CORPUSCULAR VOLUME 85 fl (80-97); MONOCYTES % (AUTO) 8.9 % (3-13); PLATELET COUNT 200 10^3/uL (150-450); RED BLOOD COUNT 4.27 10^6/uL (4.35-5.55); RED CELL DISTRIBUTION WIDTH 18.2 % (11.5-14.0); TOTAL CELLS COUNTED % (AUTO) 100 %; WHITE BLOOD COUNT 10.1 10^3/uL (4.0-10.5)
[2019-06-13 05:46] LABS: ALBUMIN 2.6 g/dL (3.5-5.0); ALKALINE PHOSPHATASE 86 U/L (38-126); ANION GAP 10 (5-19); ASPARTATE AMINO TRANSFERASE 27 U/L (17-59); BILIRUBIN,DIRECT 0.1 mg/dL (0.0-0.4); BILIRUBIN,TOTAL 0.6 mg/dL (0.2-1.3); BLOOD UREA NITROGEN 27 mg/dL (7-20); CALCIUM 7.6 mg/dL (8.4-10.2); CARBON DIOXIDE 19 mmol/L (22-30); CHLORIDE 105 mmol/L (98-107); GLUCOSE 127 mg/dL (75-110); TOTAL PROTEIN 5.1 g/dL (6.3-8.2)
[2019-06-13 05:57] LABS: POTASSIUM 3.8 mmol/L (3.6-5.0)
[2019-06-13] MEDS: PANTOPRAZOLE SODIUM 40 MG TABLET.DR PO SCH (06:10)
[2019-06-13] MEDS: INSULIN LISPRO 100 UNIT/ML 3 ML VIAL SUBCUT SCH ×4 (07:33→21:23)
--- NOTE | 2019-06-13 08:13 | EKG REPORT ---
SEVERITY:- NORMAL ECG - SINUS RHYTHM : Confirmed by: Angela Cristina MD 13-Jun-2019 08:12:36
--- NOTE | 2019-06-13 08:13 | EKG REPORT ---
SEVERITY:- OTHERWISE NORMAL ECG - SINUS TACHYCARDIA : Confirmed by: Angela Cristina MD 13-Jun-2019 08:12:43
[2019-06-13] MEDS ORDERED: VALACYCLOVIR HCL PO PRN (08:33)
[2019-06-13] MEDS ORDERED: (PENDING PHARMACY ID) (Benzonatate [Benzonatate] 200 MG) PO PRN (08:33)
[2019-06-13] MEDS ORDERED: BENZONATATE 100 MG CAPSULE PO PRN (08:55)
[2019-06-13] MEDS ORDERED: VALACYCLOVIR HCL 500 MG TABLET PO PRN (08:57)
[2019-06-13] MEDS ORDERED: AZITHROMYCIN 500 MG in DEXTROSE 5%-WATER 250 ML IV SCH (10:00)
[2019-06-13] MEDS ORDERED: GABAPENTIN 300 MG PO SCH (10:00)
[2019-06-13] MEDS ORDERED: (PENDING PHARMACY ID) (Dapagliflozin Propanediol [Farxiga] 5 MG) PO SCH (10:00)
[2019-06-13] MEDS ORDERED: METHYLCELLULOSE 500 MG PO SCH (10:00)
[2019-06-13] MEDS ORDERED: (PENDING PHARMACY ID) (Multivit-Min/Fa/Lycopen/Lutein [Centrum Silver Men Tablet] 1 TAB) PO SCH (10:00)
[2019-06-13] MEDS: GLIMEPIRIDE 4 MG TABLET PO SCH (10:19)
[2019-06-13] MEDS: METFORMIN HCL 500 MG TABLET PO SCH ×2 (10:20→17:08)
[2019-06-13] MEDS: APIXABAN 5 MG TABLET PO SCH ×2 (10:20→17:08)
[2019-06-13] MEDS: MULTIVITAMIN TABLET PO SCH (10:21)
[2019-06-13] MEDS: LEVOFLOXACIN 500 MG/D5W RTU 500 MG/100 ML RTUPB IV SCH (10:21)
[2019-06-13] MEDS: CEFTRIAXONE 1 GM/D5W RTU 1 GM/50 ML RTUPB IV SCH (11:46)
[2019-06-13] MEDS: GABAPENTIN 300 MG CAPSULE PO SCH ×2 (14:10→21:42)
[2019-06-13] MEDS: METOPROLOL SUCCINATE 25 MG TAB.SR.24H PO SCH (14:10)
--- NOTE | 2019-06-13 15:18 | PDOC PROGRESS REPORT ---
Subjective Progress Note for:: 06/13/19 Subjective:: Patient reported some improvement in his breathing. No visual hallucination so far today. There was episodes of intermittent atrial fibrillation with rapid ventricular with need for IV Cardizem. Currently in sinus rhythm. No chest pain or difficulty with breathing. No nausea, vomiting, or abdominal pain. Reason For Visit: LEFT LOWER LOBE PNEUMONIA,NEW ONSET A. FIB,COPD,DM Physical Exam Vital Signs: Temp Pulse Resp BP Pulse Ox 98.6 F 112 H 18 99/62 L 93 06/13/19 05:16 06/13/19 07:00 06/13/19 05:16 06/13/19 05:16 06/13/19 05:16 Intake & Output 06/12/19 06/13/19 06/14/19 06:59 06:59 06:59 Intake Total 2876 Output Total 975 Balance 1901 General appearance: PRESENT: mild distress - on supplemental oxygen. Head exam: PRESENT: atraumatic, normocephalic Eye exam: PRESENT: conjunctiva pink. ABSENT: scleral icterus Mouth exam: PRESENT: moist Respiratory exam: PRESENT: decreased breath sounds, rhonchi Cardiovascular exam: PRESENT: RRR, +S1, +S2. ABSENT: diastolic murmur, rubs, systolic murmur Vascular exam: ABSENT: pallor GI/Abdominal exam: PRESENT: normal bowel sounds, soft. ABSENT: distended, guarding, mass, organolmegaly, rebound, tenderness Extremities exam: ABSENT: pedal edema Neurological exam: PRESENT: alert, awake, oriented to person, oriented to place, oriented to time, oriented to situation, CN II-XII grossly intact. ABSENT: motor sensory deficit Psychiatric exam: PRESENT: appropriate affect, normal mood. ABSENT: homicidal ideation, suicidal ideation Skin exam: PRESENT: dry, warm Results Laboratory Results: 06/13/19 04:48 06/13/19 04:48 06/12/19 06/12/19 06/12/19 11:55 11:55 12:41 WBC 14.4 H RBC 4.74 Hgb 13.8 Hct 40.8 MCV 86 MCH 29.1 MCHC 33.7 RDW 18.6 H Plt Count 234 Seg Neutrophils % 86.4 H Sodium 130.5 L Potassium 5.1 H Chloride 99 Carbon Dioxide 15 L Anion Gap 17 BUN 35 H Creatinine 1.83 H Est GFR ( Amer) 44 L Glucose 312 H Lactic Acid 2.2 H Calcium 8.2 L Total Bilirubin 1.0 AST 31 Alkaline Phosphatase 94 Total Protein 6.4 Albumin 3.4 L Urine Color Urine Appearance Urine pH Ur Specific [place] Urine Protein Urine Glucose (UA) Urine Ketones Urine Blood Urine Nitrite Ur Leukocyte Esterase Urine WBC (Auto) Urine RBC (Auto) 06/12/19 06/12/19 06/12/19 14:40 16:56 21:13 WBC RBC Hgb Hct MCV MCH MCHC RDW Plt Count Seg Neutrophils % Sodium Potassium Chloride Carbon Dioxide Anion Gap BUN Creatinine Est GFR ( Amer) Glucose Lactic Acid 3.1 H 1.7 Calcium Total Bilirubin AST Alkaline Phosphatase Total Protein Albumin Urine Color YELLOW Urine Appearance CLEAR Urine pH 5.0 Ur Specific [place] 1.027 Urine Protein 30 H Urine Glucose (UA) >=500 H Urine Ketones 20 H Urine Blood SMALL H Urine Nitrite NEGATIVE Ur Leukocyte Esterase NEGATIVE Urine WBC (Auto) 1 Urine RBC (Auto) 1 06/13/19 06/13/19 04:48 04:48 WBC 10.1 RBC 4.27 L Hgb 12.5 L Hct 36.3 L MCV 85 MCH 29.1 MCHC 34.3 RDW 18.2 H Plt Count 200 Seg Neutrophils % 81.0 H Sodium 134.2 L Potassium 3.8 D Chloride 105 Carbon Dioxide 19 L Anion Gap 10 BUN 27 H Creatinine 1.12 Est GFR ( Amer) > 60 Glucose 127 H Lactic Acid Calcium 7.6 L Total Bilirubin 0.6 AST 27 Alkaline Phosphatase 86 Total Protein 5.1 L Albumin 2.6 L Urine Color Urine Appearance Urine pH Ur Specific [place] Urine Protein Urine Glucose (UA) Urine Ketones Urine Blood Urine Nitrite Ur Leukocyte Esterase Urine WBC (Auto) Urine RBC (Auto) 06/12/19 14:45 Blood Blood Culture (PCR) - Final Streptococcus Pneumoniae 06/12/19 12:41 Blood Blood Culture (PCR) - Final Streptococcus Pneumoniae 06/12/19 11:55 Troponin I < 0.012 Impressions: Chest X-Ray 06/12/19 12:03 IMPRESSION: Left lower lobe infiltrate consistent with pneumonia. Assessment & Plan - Diagnosis (1) Bacterial lobar pneumonia Is this a current diagnosis for this admission?: Yes (2) Probable sepsis Is this a current diagnosis for this admission?: Yes (3) Atrial fibrillation with rapid ventricular response Is this a current diagnosis for this admission?: Yes (4) Acute delirium Is this a current diagnosis for this admission?: Yes (5) Failure of outpatient treatment Is this a current diagnosis for this admission?: Yes (6) COPD (chronic obstructive pulmonary disease) Qualifiers: COPD type: unspecified COPD Qualified Code(s): J44.9 - Chronic obstructive pulmonary disease, unspecified Is this a current diagnosis for this admission?: Yes (7) Diabetes mellitus type 2 in nonobese Is this a current diagnosis for this admission?: Yes (8) HTN (hypertension) Qualifiers: Hypertension type: essential hypertension Qualified Code(s): I10 - Essential (primary) hypertension Is this a current diagnosis for this admission?: Yes (9) HLD (hyperlipidemia) Qualifiers: Hyperlipidemia type: unspecified Qualified Code(s): E78.5 - Hyperlipidemia, unspecified Is this a current diagnosis for this admission?: Yes (10) CAD (coronary artery disease) Qualifiers: Coronary Disease-Associated Artery/Lesion type: unspecified vessel or lesion type Is this a current diagnosis for this admission?: Yes (11) Multiple myeloma in remission Is this a current diagnosis for this admission?: Yes - Time Time Spent with patient: 25-34 minutes Level of Care: IMCU Medications reviewed and adjusted accordingly: Yes Anticipated discharge: Home with Homehealth Within: Other - Inpatient Certification Based on my medical assessment, after consideration of the patient's comorbidities, presenting symptoms, or acuity I expect that the services needed warrant INPATIENT care.: Yes I certify that my determination is in accordance with my understanding of Medicare's requirements for reasonable and necessary INPATIENT services [42 CFR 412.3e].: Yes Medical Necessity: Significant Comorbidiites Make Outpatient Treatment Too Risky, Need Close Monitoring Due to Risk of Patient Decompensation, Need For IV Fluids, Need For Continuous Telemetry Monitoring, Need for Nebulizer Therapy and Monitoring of Response, Need for IV Antibiotics, Risk of Complication if Not Cared For in Hospital, Risk of Diagnosis Which Will Require Inpatient Eval/Care/Monitoring 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 Maintain on all other current medication management. Follow up on pending organism sensitivity report.
--- NOTE | 2019-06-13 21:59 | EKG REPORT ---
SEVERITY:- ABNORMAL ECG - ATRIAL FIBRILLATION, V-RATE 67-134 LVH WITH SECONDARY REPOLARIZATION ABNORMALITY BORDERLINE PROLONGED QT INTERVAL : Confirmed by: Angela Cristina MD 13-Jun-2019 21:58:28
[2019-06-14] MEDS: NORMAL SALINE 1000 ML 1,000 ML IV PRN ×3 (00:30→23:07)
[2019-06-14] MEDS: GABAPENTIN 300 MG CAPSULE PO SCH ×3 (05:43→21:58)
[2019-06-14] MEDS: PANTOPRAZOLE SODIUM 40 MG TABLET.DR PO SCH (05:43)
[2019-06-14] MEDS: INSULIN LISPRO 100 UNIT/ML 3 ML VIAL SUBCUT SCH ×4 (07:41→22:01)
[2019-06-14] MEDS: LEVOFLOXACIN 500 MG/D5W RTU 500 MG/100 ML RTUPB IV SCH (09:54)
[2019-06-14] MEDS: MULTIVITAMIN TABLET PO SCH (09:58)
[2019-06-14] MEDS: METFORMIN HCL 500 MG TABLET PO SCH ×2 (09:58→17:47)
[2019-06-14] MEDS: GLIMEPIRIDE 4 MG TABLET PO SCH (09:58)
[2019-06-14] MEDS: METOPROLOL SUCCINATE 25 MG TAB.SR.24H PO SCH (09:59)
[2019-06-14] MEDS: APIXABAN 5 MG TABLET PO SCH ×2 (09:59→17:47)
[2019-06-14] MEDS: CEFTRIAXONE 1 GM/D5W RTU 1 GM/50 ML RTUPB IV SCH (13:33)
--- NOTE | 2019-06-14 15:52 | PDOC PROGRESS REPORT ---
Subjective Progress Note for:: 06/14/19 Subjective:: Patient denied any chest pain or difficulty with breathing. No fever or chills. Continue to experience intermittent cough with less expectoration. No nausea, vomiting, or abdominal pain. Reason For Visit: LEFT LOWER LOBE PNEUMONIA,NEW ONSET A. FIB,COPD,DM Physical Exam Vital Signs: Temp Pulse Resp BP Pulse Ox 99.1 F 89 19 124/76 100 06/14/19 11:42 06/14/19 11:42 06/14/19 11:42 06/14/19 11:42 06/14/19 11:42 Intake & Output 06/13/19 06/14/19 06/15/19 06:59 06:59 06:59 Intake Total 2876 3376 1270 Output Total 975 1375 725 Balance 1901 2000 545 Weight 79 kg Physical Exam: General appearance: PRESENT: mild distress - on supplemental oxygen. Head exam: PRESENT: atraumatic, normocephalic Eye exam: PRESENT: conjunctiva pink. ABSENT: pallor, scleral icterus Mouth exam: PRESENT: moist Respiratory exam: PRESENT: decreased breath sounds, minimal end expiratory rhonchi Cardiovascular exam: PRESENT: RRR, +S1, +S2. ABSENT: diastolic murmur, rubs, systolic murmur GI/Abdominal exam: PRESENT: normal bowel sounds, soft. ABSENT: distended, guarding, mass, organomegaly, rebound, tenderness Extremities exam: ABSENT: pedal edema Neurological exam: PRESENT: alert, awake, oriented to person, oriented to place, oriented to time, oriented to situation, CN II-XII grossly intact. ABSENT: motor sensory deficit Psychiatric exam: PRESENT: appropriate affect, normal mood. ABSENT: homicidal ideation, suicidal ideation Skin exam: PRESENT: dry, warm Results Laboratory Results: 06/13/19 04:48 06/13/19 04:48 06/12/19 12:41 Blood Blood Culture (PCR) - Final Streptococcus Pneumoniae 06/12/19 12:41 Blood Blood Culture - Final Streptococcus Pneumoniae 06/12/19 14:45 Blood Blood Culture (PCR) - Final Streptococcus Pneumoniae 06/12/19 14:45 Blood Blood Culture - Final Streptococcus Pneumoniae 06/12/19 16:56 Throat Throat Culture - Final NORMAL MARGARITA 06/12/19 11:55 Troponin I < 0.012 Impressions: Chest X-Ray 06/12/19 12:03 IMPRESSION: Left lower lobe infiltrate consistent with pneumonia. Assessment & Plan - Diagnosis (1) Septicemia due to Streptococcus pneumoniae Is this a current diagnosis for this admission?: Yes Plan: Maintain on current antibiotic therapy. (2) Bacterial lobar pneumonia Is this a current diagnosis for this admission?: Yes (3) Atrial fibrillation with rapid ventricular response Is this a current diagnosis for this admission?: Yes (4) Acute delirium Is this a current diagnosis for this admission?: Yes (5) Failure of outpatient treatment Is this a current diagnosis for this admission?: Yes (6) COPD (chronic obstructive pulmonary disease) Qualifiers: COPD type: unspecified COPD Qualified Code(s): J44.9 - Chronic obstructive pulmonary disease, unspecified Is this a current diagnosis for this admission?: Yes (7) Diabetes mellitus type 2 in nonobese Is this a current diagnosis for this admission?: Yes (8) HTN (hypertension) Qualifiers: Hypertension type: essential hypertension Qualified Code(s): I10 - Essential (primary) hypertension Is this a current diagnosis for this admission?: Yes (9) HLD (hyperlipidemia) Qualifiers: Hyperlipidemia type: unspecified Qualified Code(s): E78.5 - Hyperlipidemia, unspecified Is this a current diagnosis for this admission?: Yes (10) CAD (coronary artery disease) Qualifiers: Coronary Disease-Associated Artery/Lesion type: unspecified vessel or lesion type Is this a current diagnosis for this admission?: Yes (11) Multiple myeloma in remission Is this a current diagnosis for this admission?: Yes - Time Time Spent with patient: 25-34 minutes Level of Care: IMCU Medications reviewed and adjusted accordingly: Yes Anticipated discharge: Home with Homehealth Within: Other - Inpatient Certification Based on my medical assessment, after consideration of the patient's comorbidities, presenting symptoms, or acuity I expect that the services needed warrant INPATIENT care.: Yes I certify that my determination is in accordance with my understanding of Medicare's requirements for reasonable and necessary INPATIENT services [42 CFR 412.3e].: Yes Medical Necessity: Significant Comorbidiites Make Outpatient Treatment Too Risky , Need Close Monitoring Due to Risk of Patient Decompensation, Need For IV Fluids, Need For Continuous Telemetry Monitoring, Need for Nebulizer Therapy and Monitoring of Response, Need for IV Antibiotics, Risk of Complication if Not Cared For in Hospital, Risk of Diagnosis Which Will Require Inpatient Eval/Care/Monitoring Post Hospital Care: D/C Floor Representative Documentation - Plan Summary Plan Summary: Continue current medication therapy. Follow up on Maldonado virus test result.
[2019-06-15] MEDS: PANTOPRAZOLE SODIUM 40 MG TABLET.DR PO SCH (05:10)
[2019-06-15] MEDS: GABAPENTIN 300 MG CAPSULE PO SCH ×3 (05:10→21:45)
[2019-06-15 06:03] LABS: HEMATOCRIT 33.8 % (37.9-51.0); HEMOGLOBIN 11.7 g/dL (13.5-17.0); MEAN CORPUSCULAR HEMOGLOBIN 29.1 pg (27.0-33.4); MEAN CORPUSCULAR HGB CONC 34.6 g/dL (32.0-36.0); MEAN CORPUSCULAR VOLUME 84 fl (80-97); PLATELET COUNT 194 10^3/uL (150-450); RED BLOOD COUNT 4.02 10^6/uL (4.35-5.55); RED CELL DISTRIBUTION WIDTH 18.7 % (11.5-14.0)
[2019-06-15 06:21] LABS: ALBUMIN 2.3 g/dL (3.5-5.0); ALKALINE PHOSPHATASE 139 U/L (38-126); ANION GAP 8 (5-19); ASPARTATE AMINO TRANSFERASE 69 U/L (17-59); BILIRUBIN,DIRECT 0.1 mg/dL (0.0-0.4); BILIRUBIN,TOTAL 0.6 mg/dL (0.2-1.3); BLOOD UREA NITROGEN 14 mg/dL (7-20); CALCIUM 7.4 mg/dL (8.4-10.2); CARBON DIOXIDE 18 mmol/L (22-30); CHLORIDE 109 mmol/L (98-107); GLUCOSE 149 mg/dL (75-110); TOTAL PROTEIN 4.8 g/dL (6.3-8.2)
[2019-06-15 06:36] LABS: ABSOLUTE LYMPHOCYTES# (MANUAL) 1.1 10^3/uL (0.5-4.7); ABSOLUTE MONOCYTES # (MANUAL) 0.8 10^3/uL (0.1-1.4); BAND NEUTROPHILS % (MANUAL) 1 % (3-5); BASOPHILS % (MANUAL) 1 % (0-2); EOSINOPHILS % (MANUAL) 1 % (0-6); LYMPHOCYTES % (MANUAL) 17 % (13-45); MONOCYTES % (MANUAL) 13 % (3-13); SEGMENTED NEUTROPHILS % (MAN) 66 % (42-78); TOTAL CELLS COUNTED 100
[2019-06-15 06:40] LABS: ANISOCYTOSIS 1+; OVALOCYTES SLIGHT; TOXIC GRANULATION 1+
[2019-06-15 06:41] LABS: PLATELET COMMENT ADEQUATE
[2019-06-15] MEDS: INSULIN LISPRO 100 UNIT/ML 3 ML VIAL SUBCUT SCH ×4 (07:34→21:45)
[2019-06-15] MEDS: NORMAL SALINE 1000 ML 1,000 ML IV PRN ×2 (09:39→20:31)
[2019-06-15] MEDS: APIXABAN 5 MG TABLET PO SCH ×2 (09:40→17:09)
[2019-06-15] MEDS: GLIMEPIRIDE 4 MG TABLET PO SCH (09:40)
[2019-06-15] MEDS: POTASSIUM CHLORIDE 10 MEQ TABLET.ER PO SCH ×2 (09:40→12:45)
[2019-06-15] MEDS: METFORMIN HCL 500 MG TABLET PO SCH ×2 (09:40→17:09)
[2019-06-15] MEDS: METOPROLOL SUCCINATE 25 MG TAB.SR.24H PO SCH (09:41)
[2019-06-15] MEDS: MULTIVITAMIN TABLET PO SCH (09:41)
[2019-06-15] MEDS: LEVOFLOXACIN 500 MG TABLET PO SCH (09:41)
[2019-06-15] MEDS ORDERED: POTASSIUM CHLORIDE 10 MEQ TABLET.ER PO ONE (14:39)
--- NOTE | 2019-06-15 15:29 | PDOC PROGRESS REPORT ---
Subjective Progress Note for:: 06/15/19 Subjective:: No chest pain or difficulty with breathing. Out of COVID-19 isolation with negative test report. No fever or chills. No nausea, vomiting, or abdominal pain. Reason For Visit: LEFT LOWER LOBE PNEUMONIA,NEW ONSET A. FIB,COPD,DM Physical Exam Vital Signs: Temp Pulse Resp BP Pulse Ox 98.2 F 95 20 119/92 H 95 06/15/19 03:25 06/15/19 07:00 06/15/19 03:25 06/15/19 03:25 06/15/19 03:25 Intake & Output 06/14/19 06/15/19 06/16/19 06:59 06:59 06:59 Intake Total 3376 2782 Output Total 1373 2925 Balance 2000 Weight 79 kg 78.5 kg Physical Exam: General appearance: PRESENT: mild distress - on supplemental oxygen. Head exam: PRESENT: atraumatic, normocephalic Eye exam: PRESENT: conjunctiva pink. ABSENT: pallor, scleral icterus Mouth exam: PRESENT: moist Respiratory exam: PRESENT: clear to auscultation, decreased breath sounds Cardiovascular exam: PRESENT: RRR, +S1, +S2. ABSENT: diastolic murmur, rubs, systolic murmur GI/Abdominal exam: PRESENT: normal bowel sounds, soft. ABSENT: distended, guard ing, mass, organomegaly, rebound, tenderness Extremities exam: ABSENT: pedal edema Neurological exam: PRESENT: alert, awake, oriented to person, oriented to place, oriented to time, oriented to situation, CN II-XII grossly intact. ABSENT: motor sensory deficit Psychiatric exam: PRESENT: appropriate affect, normal mood. ABSENT: homicidal ideation, suicidal ideation Skin exam: PRESENT: dry, warm Results Laboratory Results: 06/15/19 05:29 06/15/19 05:29 06/15/19 06/15/19 05:29 05:29 WBC 6.0 RBC 4.02 L Hgb 11.7 L Hct 33.8 L MCV 84 MCH 29.1 MCHC 34.6 RDW 18.7 H Plt Count 194 Seg Neutrophils % Not Reportable Sodium 135.1 L Potassium 3.0 L* Chloride 109 H Carbon Dioxide 18 L Anion Gap 8 BUN 14 Creatinine 0.83 Est GFR ( Amer) > 60 Glucose 149 H Calcium 7.4 L Total Bilirubin 0.6 AST 69 H Alkaline Phosphatase 139 H Total Protein 4.8 L Albumin 2.3 L 06/12/19 12:41 Blood Blood Culture (PCR) - Final Streptococcus Pneumoniae 06/12/19 12:41 Blood Blood Culture - Final Streptococcus Pneumoniae 06/12/19 14:45 Blood Blood Culture (PCR) - Final Streptococcus Pneumoniae 06/12/19 14:45 Blood Blood Culture - Final Streptococcus Pneumoniae 06/12/19 16:56 Throat Throat Culture - Final NORMAL MARGARITA 06/12/19 11:55 Troponin I < 0.012 Impressions: Chest X-Ray 06/12/19 12:03 IMPRESSION: Left lower lobe infiltrate consistent with pneumonia. Assessment & Plan - Diagnosis (1) Septicemia due to Streptococcus pneumoniae Is this a current diagnosis for this admission?: Yes (2) Bacterial lobar pneumonia Is this a current diagnosis for this admission?: Yes (3) Atrial fibrillation with rapid ventricular response Is this a current diagnosis for this admission?: Yes (4) Acute delirium Is this a current diagnosis for this admission?: Yes (5) Failure of outpatient treatment Is this a current diagnosis for this admission?: Yes (6) COPD (chronic obstructive pulmonary disease) Qualifiers: COPD type: unspecified COPD Qualified Code(s): J44.9 - Chronic obstructive pulmonary disease, unspecified Is this a current diagnosis for this admission?: Yes (7) Diabetes mellitus type 2 in nonobese Is this a current diagnosis for this admission?: Yes (8) HTN (hypertension) Qualifiers: Hypertension type: essential hypertension Qualified Code(s): I10 - Essential (primary) hypertension Is this a current diagnosis for this admission?: Yes (9) HLD (hyperlipidemia) Qualifiers: Hyperlipidemia type: unspecified Qualified Code(s): E78.5 - Hyperlipidemia, unspecified Is this a current diagnosis for this admission?: Yes (10) CAD (coronary artery disease) Qualifiers: Coronary Disease-Associated Artery/Lesion type: unspecified vessel or lesion type Is this a current diagnosis for this admission?: Yes (11) Multiple myeloma in remission Is this a current diagnosis for this admission?: Yes (12) Hypokalemia due to inadequate potassium intake Is this a current diagnosis for this admission?: Yes Plan: Patient will receive oral potassium replacement 40 mEq po q 4 hours x 2 doses. Obtain serum magnesium level for further evaluation and possible replacement. His hypocalcemia did correct for his low serum albumin level. - Time Time Spent with patient: 25-34 minutes Level of Care: IMCU Medications reviewed and adjusted accordingly: Yes Anticipated discharge: Home with Homehealth Within: Other - Inpatient Certification Based on my medical assessment, after consideration of the patient's comorbidities, presenting symptoms, or acuity I expect that the services needed warrant INPATIENT care.: Yes I certify that my determination is in accordance with my understanding of Medicare's requirements for reasonable and necessary INPATIENT services [42 CFR 412.3e].: Yes Medical Necessity: Significant Comorbidiites Make Outpatient Treatment Too Risky, Need Close Monitoring Due to Risk of Patient Decompensation, Need For Continuous Telemetry Monitoring, Need for IV Antibiotics, Risk of Complication if Not Cared For in Hospital, Risk of Diagnosis Which Will Require Inpatient Eval/Care/Monitoring Post Hospital Care: D/C Sort Operations Supervisor Documentation - Plan Summary Plan Summary: D/C IV Levofloxacin and Cefepime. Start on oral Levofloxacin 500 mg po daily. Continue all other current medication management.
[2019-06-15 18:47] LABS: ANION GAP 10 (5-19); BLOOD UREA NITROGEN 15 mg/dL (7-20); CALCIUM 7.5 mg/dL (8.4-10.2); CARBON DIOXIDE 18 mmol/L (22-30); CHLORIDE 108 mmol/L (98-107); GLUCOSE 160 mg/dL (75-110); POTASSIUM 3.7 mmol/L (3.6-5.0)
[2019-06-16] MEDS: GABAPENTIN 300 MG CAPSULE PO SCH ×2 (05:14→15:00)
[2019-06-16] MEDS: PANTOPRAZOLE SODIUM 40 MG TABLET.DR PO SCH (05:14)
[2019-06-16] MEDS: NORMAL SALINE 1000 ML 1,000 ML IV PRN (06:16)
[2019-06-16] MEDS: INSULIN LISPRO 100 UNIT/ML 3 ML VIAL SUBCUT SCH ×3 (08:11→16:30)
[2019-06-16] MEDS: GLIMEPIRIDE 4 MG TABLET PO SCH (10:08)
[2019-06-16] MEDS: LEVOFLOXACIN 500 MG TABLET PO SCH (10:08)
[2019-06-16] MEDS: MULTIVITAMIN TABLET PO SCH (10:08)
[2019-06-16] MEDS: APIXABAN 5 MG TABLET PO SCH (10:08)
[2019-06-16] MEDS: METFORMIN HCL 500 MG TABLET PO SCH (10:09)
[2019-06-16] MEDS: METOPROLOL SUCCINATE 25 MG TAB.SR.24H PO SCH (10:09)
[2019-06-16 15:03] VITALS: BP 109/75
[2019-06-16 16:26] LABS: ABSOLUTE BASOPHILS # (AUTO) 0.1 10^3/uL (0.0-0.2); ABSOLUTE EOSINOPHILS # (AUTO) 0.1 10^3/uL (0.0-0.6); ABSOLUTE LYMPHOCYTES (AUTO) 1.1 10^3/uL (0.5-4.7); ABSOLUTE MONOCYTES (AUTO) 0.9 10^3/uL (0.1-1.4); ABSOLUTE NEUT (AUTO) 5.5 10^3/uL (1.7-8.2); BASOPHILS % (AUTO) 0.9 % (0-2); EOSINOPHILS % (AUTO) 1.1 % (0-6); HEMATOCRIT 35.6 % (37.9-51.0); HEMOGLOBIN 12.3 g/dL (13.5-17.0); LYMPHOCYTES % (AUTO) 14.9 % (13-45); MEAN CORPUSCULAR HEMOGLOBIN 28.8 pg (27.0-33.4); MEAN CORPUSCULAR HGB CONC 34.4 g/dL (32.0-36.0); MEAN CORPUSCULAR VOLUME 84 fl (80-97); MONOCYTES % (AUTO) 11.3 % (3-13); PLATELET COUNT 223 10^3/uL (150-450); RED BLOOD COUNT 4.26 10^6/uL (4.35-5.55); RED CELL DISTRIBUTION WIDTH 18.2 % (11.5-14.0); SEGMENTED NEUTROPHILS % (AUTO) 71.8 % (42-78); TOTAL CELLS COUNTED % (AUTO) 100 %; WHITE BLOOD COUNT 7.7 10^3/uL (4.0-10.5)
--- NOTE | 2019-06-16 17:27 | PDOC DISCHARGE SUMMARY ---
Impression - Admit/DC Date/PCP Admission Date/Primary Care Provider: 06/12/19 15:02 SHONA OC Discharge Date: 06/16/19 - Discharge Diagnosis (1) Septicemia due to Streptococcus pneumoniae Is this a current diagnosis for this admission?: Yes (2) Bacterial lobar pneumonia Is this a current diagnosis for this admission?: Yes (3) Atrial fibrillation with rapid ventricular response Is this a current diagnosis for this admission?: Yes (4) Acute delirium Is this a current diagnosis for this admission?: Yes (5) Failure of outpatient treatment Is this a current diagnosis for this admission?: Yes (6) COPD (chronic obstructive pulmonary disease) Is this a current diagnosis for this admission?: Yes (7) Diabetes mellitus type 2 in nonobese Is this a current diagnosis for this admission?: Yes (8) HTN (hypertension) Is this a current diagnosis for this admission?: Yes (9) HLD (hyperlipidemia) Is this a current diagnosis for this admission?: Yes (10) CAD (coronary artery disease) Is this a current diagnosis for this admission?: Yes (11) Multiple myeloma in remission Is this a current diagnosis for this admission?: Yes (12) Hypokalemia due to inadequate potassium intake Is this a current diagnosis for this admission?: Yes - Assessment Summary: Patient was admitted for failure of oral antibiotic therapy and worsening left lower lobe pneumonia with leukocytosis. His sputum was no grew organism but blood culture grew streptococcus pneumoniae. He was isolated for possible COVID- 19 infection but his testing was reported as negative during this hospitalization. He demonstrated sustained intermittent episodes of atrial fibrillation necessitating initiation of anticoagulant therapy with Eliquis. Patient had his heart rate controlled on iv Cardizem and eventually maintained on his preadmission metoprolol therapy. Patient had episode of questionable oral versus nose bleeding this morning. In view of his morbidities, including Multiple Myeloma, it was deemed necessary to take him off Eliquis therapy since patient did not feel comfortable to continue the medication. He was on Ecotrin 81 mg daily prior to admission and he wants to stay on the same medication. he will be discharge home today on Levofloxacin 500 mg p.o daily x 7 days. He will follow for post acute care management via telehealth due to the ongoing lozoya virus pandemic. - Additional Information Resuscitation Status: Do Not Resuscitate - Copy of advance directive dated 04/21/2019 on chart Discharge Diet: Cardiac, Diabetic Discharge Activity: Activity As Tolerated, Slowly Increase Activity Referrals: [facility] [Outside] (PATIENT TO BE FOLLOWED BY HEALTH DEPT. ON SELF QUARANTINE AT HOME. ONCE THE HEALTH DEPT. RELEASES PATIENT THEN PATIENT MAY SCHEDULE A FOLLOW UP APPT. WITH PCP.) SHONA RENAE MD [Primary Care Provider] - 06/22/19 10:00 am (Telemedicine for post acute care follow up) Prescriptions: Levofloxacin [Levaquin 500 mg Tablet] 500 mg PO DAILY #7 tablet Home Medications: Gabapentin [Gralise] 300 mg PO TID 06/30/14 Metformin HCl [Glucophage] 1,000 mg PO BID 06/30/14 Pravastatin Sodium [Pravachol] 20 mg PO QHS 06/30/14 Amlodipine Besylate [Norvasc 2.5 mg Tablet] 2.5 mg PO DAILY 08/31/16 Aspirin [Aspirin 81 mg Chewable Tablet] 81 mg PO DAILY 08/31/16 Losartan Potassium 50 mg PO DAILY 08/31/16 Metoprolol Succinate 25 mg PO DAILY 08/31/16 Omeprazole 20 mg PO DAILY 08/31/16 Benzonatate 200 mg PO TIDP PRN 06/12/19 Budesonide/Formoterol Fumarate [Symbicort HFA 160-4.5 mcg Inhaler 6 gm] 2 puff IH BID 06/12/19 Dapagliflozin Propanediol [Farxiga] 5 mg PO DAILY 06/12/19 Glimepiride [Amaryl 4 mg Tablet] 4 mg PO DAILY 06/12/19 Ipratropium/Albuterol Sulfate [Combivent Respimat 4 gm Mdi] 1 puff IH Q6HP PRN 0 06/12/19 Lenalidomide [Revlimid] 5 mg PO MOTUWETHFR@1000 06/12/19 Methylcellulose [Fiber Laxative] 500 mg PO DAILY 06/12/19 Multivit-Min/FA/Lycopen/Lutein [Centrum Silver Men Tablet] 1 tab PO DAILY 06/12/19 Ranitidine HCl 150 mg PO QHS 06/12/19 Valacyclovir HCl [Valacyclovir] 1 mg PO DAILYP PRN 06/12/19 Levofloxacin [Levaquin 500 mg Tablet] 500 mg PO DAILY #7 tablet 06/16/19 History of Present Illiness History of Present Illness: JESSICA WALKER is a 74 year old male patient known to my practice who presented to the office with complain of left sided flank pain with intermittent coughing and no improvement in his symptoms including productive cough despite 5 days of Azithromycin 250 mg six tablets treatment for possible upper respiratory tract infection. Patient has history of chronic obstructive pulmonary disease and Multiple Myeloma. Patient reported worsening symptoms since 06/09/2019. He reported worsening shortness of breath with walking, and exertion. He localized pain to left flank region with associated decrease in appetite. He denied associated fever, chills, chest pain, palpitation, wheezing, nausea, vomiting, or heartburn. No nasal or sinus congestion. No post nasal drip. He reported visual hallucination as seeing bugs since this morning. He was subsequently referred to the ED for further evaluation and management due to concern for failure of outpatient oral antibiotic therapy, worsening leukocytosis with left shift, abnormal chest X ray suggestive of Left lower lobe pneumonia, abnormal urinalysis with glycosuria, and concern about COVID-19 infection in view of his age and morbidities. His initial evaluation the ED was significant for new onset Atrial fibrillation with rapid ventricular rate. He was advised hospitalization for further evaluation and management. His morbidities are as listed below. Physical Exam Vital Signs: Temp Pulse Resp BP Pulse Ox 97.9 F 97 16 136/73 H 95 06/16/19 11:18 06/16/19 14:00 06/16/19 11:18 06/16/19 11:18 06/16/19 11:18 Intake & Output 06/15/19 06/16/19 06/17/19 06:59 06:59 06:59 Intake Total 2782 3595 120 Output Total 2925 1350 500 Balance -143 2245 -380 Weight 78.5 kg 77.5 kg General appearance: PRESENT: mild distress - on supplemental oxygen. Head exam: PRESENT: atraumatic, normocephalic Eye exam: PRESENT: conjunctiva pink. ABSENT: pallor, scleral icterus Mouth exam: PRESENT: moist Respiratory exam: PRESENT: clear to auscultation, decreased breath sounds Cardiovascular exam: PRESENT: RRR, +S1, +S2. ABSENT: diastolic murmur, rubs, systolic murmur GI/Abdominal exam: PRESENT: normal bowel sounds, soft. ABSENT: distended, guarding, mass, organomegaly, rebound, tenderness Extremities exam: ABSENT: pedal edema Neurological exam: PRESENT: alert, awake, oriented to person, oriented to place, oriented to time, oriented to situation, CN II-XII grossly intact. ABSENT: motor sensory deficit Psychiatric exam: PRESENT: appropriate affect, normal mood. ABSENT: homicidal ideation, suicidal ideation Skin exam: PRESENT: dry, warm Results Laboratory Results: WBC 6.0 10^3/uL (4.0-10.5) 06/15/19 05:29 RBC 4.02 10^6/uL (4.35-5.55) L 06/15/19 05:29 Hgb 11.7 g/dL (13.5-17.0) L 06/15/19 05:29 Hct 33.8 % (37.9-51.0) L 06/15/19 05:29 MCV 84 fl (80-97) 06/15/19 05:29 MCH 29.1 pg (27.0-33.4) 06/15/19 05:29 MCHC 34.6 g/dL (32.0-36.0) 06/15/19 05:29 RDW 18.7 % (11.5-14.0) H 06/15/19 05:29 Plt Count 194 10^3/uL (150-450) 06/15/19 05:29 Lymph % (Auto) Not Reportable 06/15/19 05:29 [place] % (Auto) Not Reportable 06/15/19 05:29 Eos % (Auto) Not Reportable 06/15/19 05:29 Baso % (Auto) Not Reportable 06/15/19 05:29 Absolute Neuts (auto) Not Reportable 06/15/19 05:29 Absolute Lymphs (auto) Not Reportable 06/15/19 05:29 Absolute Monos (auto) Not Reportable 06/15/19 05:29 Absolute Eos (auto) Not Reportable 06/15/19 05:29 Absolute Basos (auto) Not Reportable 06/15/19 05:29 Total Counted 100 06/15/19 05:29 Seg Neutrophils % Not Reportable 06/15/19 05:29 Seg Neuts % (Manual) 66 % (42-78) 06/15/19 05:29 Band Neutrophils % 1 % (3-5) L 06/15/19 05:29 Lymphocytes % (Manual) 17 % (13-45) 06/15/19 05:29 Atypical Lymphs % 1 % (0) 06/15/19 05:29 Monocytes % (Manual) 13 % (3-13) 06/15/19 05:29 Eosinophils % (Manual) 1 % (0-6) 06/15/19 05:29 Basophils % (Manual) 1 % (0-2) 06/15/19 05:29 Abs Neuts (Manual) 4.0 10^3/uL (1.7-8.2) 06/15/19 05:29 Abs Lymphs (Manual) 1.1 10^3/uL (0.5-4.7) 06/15/19 05:29 Abs Monocytes (Manual) 0.8 10^3/uL (0.1-1.4) 06/15/19 05:29 Absolute Eos (Manual) 0.1 10^3/uL (0.0-0.6) 06/15/19 05:29 Abs Basophils (Manual) 0.1 10^3/uL (0.0-0.2) 06/15/19 05:29 Toxic Granulation 1+ 06/15/19 05:29 Platelet Comment ADEQUATE 06/15/19 05:29 Anisocytosis 1+ 06/15/19 05:29 Ovalocytes SLIGHT 06/15/19 05:29 Sodium 135.7 mmol/L (137-145) L 06/15/19 18:04 Potassium 3.7 mmol/L (3.6-5.0) 06/15/19 18:04 Chloride 108 mmol/L (98-107) H 06/15/19 18:04 Carbon Dioxide 18 mmol/L (22-30) L 06/15/19 18:04 Anion Gap 10 (5-19) 06/15/19 18:04 BUN 15 mg/dL (7-20) 06/15/19 18:04 Creatinine 0.75 mg/dL (0.52-1.25) 06/15/19 18:04 Est GFR ( Amer) > 60 (>60) 06/15/19 18:04 Est GFR (MDRD) Non-Af > 60 (>60) 06/15/19 18:04 Glucose 160 mg/dL (75-110) H 06/15/19 18:04 POC Glucose 134 mg/dL (70-110) H 06/16/19 11:19 Lactic Acid 1.7 mmol/L (0.7-2.1) 06/12/19 21:13 Calcium 7.5 mg/dL (8.4-10.2) L 06/15/19 18:04 Magnesium 2.0 mg/dL (1.6-2.3) 06/15/19 05:29 Total Bilirubin 0.6 mg/dL (0.2-1.3) 06/15/19 05:29 Direct Bilirubin 0.1 mg/dL (0.0-0.4) 06/15/19 05:29 Neonat Total Bilirubin Not Reportable 06/15/19 05:29 Neonat Direct Bilirubin Not Reportable 06/15/19 05:29 Neonat Indirect Bili Not Reportable 06/15/19 05:29 AST 69 U/L (17-59) H 06/15/19 05:29 ALT 57 U/L (<50) H 06/15/19 05:29 Alkaline Phosphatase 139 U/L (38-126) H 06/15/19 05:29 Troponin I < 0.012 ng/mL 06/12/19 11:55 Total Protein 4.8 g/dL (6.3-8.2) L 06/15/19 05:29 Albumin 2.3 g/dL (3.5-5.0) L 06/15/19 05:29 Urine Color YELLOW 06/12/19 14:40 Urine Appearance CLEAR 06/12/19 14:40 Urine pH 5.0 (5.0-9.0) 06/12/19 14:40 Ur Specific [place] 1.027 06/12/19 14:40 Urine Protein 30 mg/dL (NEGATIVE) H 06/12/19 14:40 Urine Glucose (UA) >=500 mg/dL (NEGATIVE) H 06/12/19 14:40 Urine Ketones 20 mg/dL (NEGATIVE) H 06/12/19 14:40 Urine Blood SMALL (NEGATIVE) H 06/12/19 14:40 Urine Nitrite NEGATIVE (NEGATIVE) 06/12/19 14:40 Urine Bilirubin NEGATIVE (NEGATIVE) 06/12/19 14:40 Urine Urobilinogen NEGATIVE mg/dL (<2.0) 06/12/19 14:40 Ur Leukocyte Esterase NEGATIVE (NEGATIVE) 06/12/19 14:40 Urine WBC (Auto) 1 /HPF 06/12/19 14:40 Urine RBC (Auto) 1 /HPF 06/12/19 14:40 Urine Bacteria (Auto) TRACE /HPF 06/12/19 14:40 Urine Mucus (Auto) RARE /LPF 06/12/19 14:40 Urine Ascorbic Acid NEGATIVE (NEGATIVE) 06/12/19 14:40 COVID-19 Source NASOPHARYNGEAL 06/12/19 18:05 COVID-19 (LAMBERTO) NOT DETECTED 06/12/19 18:05 Influenza A (Rapid) NEGATIVE (NEGATIVE) 06/12/19 16:56 Influenza B (Rapid) NEGATIVE (NEGATIVE) 06/12/19 16:56 Group A Strep Rapid NEGATIVE (NEGATIVE) 06/12/19 16:56 06/12/19 11:55 Troponin I < 0.012 Impressions: Chest X-Ray 06/12/19 12:03 IMPRESSION: Left lower lobe infiltrate consistent with pneumonia. Plan Health Concerns: High risk of readmission due to his underlying morbidities. Plan of Treatment: Complete 7 more days of antibiotic coverage. Emphasized compliance with medic ation and continue social distancing, frequent hand washing, and avoiding handshaking and crowded environment. Goals: Close monitoring post discharge. Emphasized precautionary instructions for COVID-19 infection. Stroke Is this a Stroke Patient?: No Acute Heart Failure - Is this a Heart Failure Patient?: No
== END 2019-06-16 17:56 | disposition home or self-care (01) | DRG 871 ==
LOC: ER 11:43 → EH 15:02 → 5 18:40 → 3S 06-14 18:09
PROVIDERS: ADMIT Internal Medicine Geriatric Medicine; ATTEND Internal Medicine Geriatric Medicine
DX: A40.3 Sepsis due to Streptococcus pneumoniae (principal); J15.9 Unspecified bacterial pneumonia; C90.01 Multiple myeloma in remission; J44.0 Chronic obstructive pulmonary disease with (acute) lower respiratory infection; I48.91 Unspecified atrial fibrillation; I10 Essential (primary) hypertension; E78.5 Hyperlipidemia, unspecified; I25.10 Atherosclerotic heart disease of native coronary artery without angina pectoris; R41.0 Disorientation, unspecified; E87.6 Hypokalemia; K21.9 Gastro-esophageal reflux disease without esophagitis; I95.89 Other hypotension; E78.00 Pure hypercholesterolemia, unspecified; Z66 Do not resuscitate; Z79.84 Long term (current) use of oral hypoglycemic drugs; Z03.818 Encounter for observation for suspected exposure to other biological agents ruled out; Z79.899 Other long term (current) drug therapy; Z79.82 Long term (current) use of aspirin
CPT/HCPCS: 36415; 71045; 80053; 81001; 82962; 83605; 83735; 84484; 85025; 87040; 87070; 87077; 87150; 87186; 87635; 87804; 87880; 93005; 93010; 94667; 94799; 96365; 99291; J0456; J0696; J1815; J1956; J3490; J7030